=== PATIENT | female | born 1960 | race African-American/Black ===

== ENCOUNTER 2020-06-20 07:33 | Day surgery (SDC) | payer OTHER ==
[2020-06-15 14:44] VITALS: BMI 27.1
[2020-06-20] MEDS ORDERED: BUPIVACAINE HCL/PF 0.5% (5MG/ML) 10 ML VIAL ONE (08:35)
[2020-06-20] MEDS ORDERED: MORPHINE SULFATE 10 MG/1 ML *VIAL ONE (08:49)
[2020-06-20] MEDS ORDERED: MIDAZOLAM HCL 2 MG/2 ML SINGLE DOSE VIAL ONE (09:04)
[2020-06-20] MEDS ORDERED: ONDANSETRON 4 MG/2 ML VIAL IVPUSH PRN (09:35)
[2020-06-20] MEDS ORDERED: oxyCODONE HCL 5 MG TABLET PO PRN (09:35)
[2020-06-20] MEDS ORDERED: LACTATED RINGERS SOLUTION 1,000 ML IV SCH (09:45)
[2020-06-20] MEDS ORDERED: morphine CARPU-JECT 10 MG/1 ML DISP.SYRIN NR ONE (09:52)
[2020-06-20] MEDS ORDERED: BUPIVACAINE HCL/PF 0.5% (5 MG/ML) 30 ML VIAL IJ ONE (09:52)
--- NOTE | 2020-06-20 10:38 | OP ---
DATE OF OPERATION: 06/20/2020 PREOPERATIVE DIAGNOSES: 1. Stiffness to the right knee. 2. Torn meniscus to the right knee. POSTOPERATIVE DIAGNOSES: 1. Stiffness to the right knee with adhesions. 2. Torn meniscus to the right knee. 3. Torn anterior cruciate ligament (ACL), right knee. 4. Osteochondritis dissecans, right knee. 5. Chondromalacia, chondral fissuring, right knee. 6. Extensive joint debris, right knee. 7. Extensive hypertrophic synovium, right knee. PROCEDURE: 1. Gentle manipulation of the right knee under anesthesia with lysis and resection of adhesions. 2. Meniscectomy, right knee. 3. Micro-radiofrequency wand shortening and debridement anterior cruciate ligament, right knee. 4. Micro-drilling osteochondritis dissecans, right knee for stem cell recruitment. 5. Chondral shaving, chondroplasty, right knee. 6. Extensive joint debridement, right knee. 7. Extensive hypertrophic synovectomy, right knee. 8. Plastic surgery closure, right knee portals. SURGEON: Robin Molina MD AUTOMATIC FAB[employer]IC CUTTER: KIARA Benitez ANESTHESIA: Dick Aleman MD TYPE OF ANESTHESIA: General anesthesia. DESCRIPTION: The procedure consisted of the patient being brought into the operating room and gently transferred from the stretcher to the OR table with all bony prominences well padded. The right leg was prepared and draped in a sterile fashion. The patient was given intravenous antibiotics and copious irrigation throughout the procedure to minimize risk for infection. A complete risk, benefit, alternative discussion was conducted with the patient which was inclusive of but not limited to infection, bleeding, , paralysis, increased pain, need for repeat surgery. Patient asked questions, understood the procedure and desired to proceed with surgical treatment. Following sterile preparation and draping the right leg, the leg was examined. The range of movement initially was noted to be a 5-degree block to extension with 85 degrees of flexion. Anterior drawer test was noted to be positive. After a gentle slow manipulation full extension was obtained with 120 degrees of flexion. Anterior drawer test continued to be positive. The leg was exsanguinated using a rubber Esmarch bandage. It should be noted that prior to initiation of the procedure an appropriate time out had been conducted. Following exsanguination using a rubber Esmarch bandage, tourniquet was inflated to 350 mmHg. Suprapatellar, medial and lateral joint line portals were used to introduce the arthroscope and arthroscopic instruments. There was noted to be hypertrophic synovium in the suprapatellar pouch and an extensive hypertrophic synovectomy was performed. Medial and lateral gutters were without plica or loose body. The inferior surface of the patella had chondral fissuring and damage was consistent with chondromalacia and this was smoothed using shaver and radiofrequency wand. Medial meniscus was found to have a tear of the posterior horn and this was resected using shaver and radiofrequency wand. There was noted to be a 1 cm diameter osteochondritis dissecans on the medial femoral condyle and this was drilled using a 0.62 micro drill bit to recruit local stem cells. The intercondylar region had extensive joint debris and extensive joint debridement was performed. Anterior cruciate ligament was examined. There was noted to be tearing of the cruciate ligament and anterior drawer was positive. Micro-radiofrequency wand technique was used to shorten the anterior cruciate ligament. Anterior drawer was then negative. Lateral meniscus was examined. There was noted to be tearing of the lateral meniscus in the posterior horn and this was resected using shaver and radiofrequency wand. The knee was then copiously irrigated with sterile saline irrigant. The wounds were closed in a plastic surgery fashion using 4-0 undyed Vicryl with inverted stitches. Steri-Strips, Xeroform, 4 x 4's, combine, sterile Webril, Morgan bandages and a knee immobilizer were then applied. The patient was then gently awoken from anesthesia without incident and transferred from the operating room to the recovery room in satisfactory condition. There were no intraoperative complications. It should be noted the tourniquet was deflated after approximately 35 minutes of tourniquet time. There were no intraoperative complication. Harpal Carpenter was critical for assisting during surgery, holding the arthroscope I used the drill and arthroscopic instruments. He provided critical support and safety in surgical treatment. ROBIN MOLINA M.D. [id number]
[2020-06-20 12:18] VITALS: BP 135/77; PULSE 65; TEMP 97.8
== END 2020-06-20 12:19 | disposition home or self-care (01) ==
LOC: FASU 07:33
PROVIDERS: ATTEND Orthopaedic Surgery
PROC: 0SBC4ZZ Excision of Right Knee Joint, Percutaneous Endoscopic Approach (ICD-10-PCS; 2020-06-20)
PROC: 0SQC4ZZ Repair Right Knee Joint, Percutaneous Endoscopic Approach (ICD-10-PCS; 2020-06-20)
PROC: 0SBC4ZZ Excision of Right Knee Joint, Percutaneous Endoscopic Approach (ICD-10-PCS; 2020-06-20)
PROC: 0S5C4ZZ Destruction of Right Knee Joint, Percutaneous Endoscopic Approach (ICD-10-PCS; 2020-06-20)
PROC: 0SBC4ZZ Excision of Right Knee Joint, Percutaneous Endoscopic Approach (ICD-10-PCS; principal; 2020-06-20 09:37)
DX: S83.241A Other tear of medial meniscus, current injury, right knee, initial encounter (principal); S83.281A Other tear of lateral meniscus, current injury, right knee, initial encounter; M25.661 Stiffness of right knee, not elsewhere classified; S83.511A Sprain of anterior cruciate ligament of right knee, initial encounter; X58.XXXA Exposure to other specified factors, initial encounter; Y93.9 Activity, unspecified; Y92.9 Unspecified place or not applicable; M93.261 Osteochondritis dissecans, right knee; M94.261 Chondromalacia, right knee; M25.861 Other specified joint disorders, right knee; M67.261 Synovial hypertrophy, not elsewhere classified, right lower leg
CPT/HCPCS: 29876; 29880; 29886; 29999; G0289; 94760